=== PATIENT | female | born 1955 | race Hispanic/Latino ===

== ENCOUNTER 2017-10-26 10:46 | Day surgery (SDC) | payer BC ==
[2017-10-26] MEDS ORDERED: Lactated Ringer's 1,000 ML IV ONE (11:27)
[2017-10-26] MEDS ORDERED: Lidocaine PF 2% (5 ml) Inj (For Cardiac Arrhy) IV ONE (12:22)
[2017-10-26] MEDS ORDERED: Propofol 10 mg/ml Inj (20 ML) ONE (12:22)
[2017-10-26 12:50] VITALS: TEMP 98
[2017-10-26 13:11] VITALS: BP 119/85; PULSE 84; RESP 16; O2SAT 99
== END 2017-10-26 13:26 | disposition home or self-care (01) ==
LOC: H.ENDO 10:46
PROVIDERS: ATTEND Internal Medicine Gastroenterology
DX: Z12.11 Encounter for screening for malignant neoplasm of colon (principal); E78.5 Hyperlipidemia, unspecified; I10 Essential (primary) hypertension; R73.03 Prediabetes; K57.30 Diverticulosis of large intestine without perforation or abscess without bleeding; K64.8 Other hemorrhoids
CPT/HCPCS: 45378; 82948; J2001; J2704; J7120